=== PATIENT | female | born 1955 | race American Indian/Alaskan Native ===

== ENCOUNTER 2017-02-06 12:15 | Emergency (ER) | payer OTHER ==
[2017-02-06] MEDS ORDERED: MOTRIN PO ONE (15:20)
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
[2017-02-06 17:14] VITALS: BP 162/97
== END 2017-02-06 17:13 | disposition home or self-care (01) ==
LOC: ED 12:15
DX: S13.4XXA Sprain of ligaments of cervical spine, initial encounter (principal); S83.8X2A Sprain of other specified parts of left knee, initial encounter; S83.8X1A Sprain of other specified parts of right knee, initial encounter; I10 Essential (primary) hypertension; V49.59XA Passenger injured in collision with other motor vehicles in traffic accident, initial encounter; Y93.89 Activity, other specified; Y99.8 Other external cause status; Y92.89 Other specified places as the place of occurrence of the external cause
CPT/HCPCS: 99283